=== PATIENT | female | born 1960 | race Hispanic/Latino ===

== ENCOUNTER 2019-01-06 21:18 | Emergency (ER) | payer MEDICAID ==
[~2019-01-06 21:18] MED LIST: HYDR25TA PO; LISI40TA4 PO; PRAV40TA3 PO; SULF-168 PO
[2019-01-06 21:51] LABS: BASOPHILS % (AUTO) 0.6 % (0.0-5.0); EOSINOPHILS % (AUTO) 1.2 % (0.0-8.0); HEMATOCRIT 44.3 % (36-48); LYMPHOCYTES % (AUTO) 21.7 % (21.0-51.0); MEAN CORPUSCULAR HEMOGLOBIN 29.7 pg (27.0-33.0); MEAN CORPUSCULAR HGB CONC 33.5 g/dL (32.0-36.0); MEAN CORPUSCULAR VOLUME 88.8 fL (79-99); MONOCYTES % (AUTO) 5.6 % (3.0-13.0); NEUTROPHILS % (AUTO) 70.9 % (40.0-77.0); NUCLEATED RED BLOOD CELLS 0.1 % (0.0-0.19); PLATELET COUNT (AUTO) 283 K/uL (130-400); RED BLOOD CELL COUNT(AUTO) 4.99 MIL/uL (4.00-5.50); RED CELL DISTRIBUTION WIDTH 13.1 % (11.0-15.5)
[2019-01-06 21:59] LABS: CREATININE 0.9 mg/dL (0.5-1.5); POTASSIUM 3.8 mmol/L (3.5-5.1)
[2019-01-06 22:03] LABS: ALBUMIN 4.3 g/dL (3.5-5.0); BILIRUBIN,TOTAL 0.7 mg/dL (0.2-1.0)
[2019-01-06 22:08] LABS: INR 0.93 (0.85-1.15); PARTIAL THROMBOPLASTIN TIME 25.7 SEC (26.3-35.5); PROTHROMBIN TIME 9.8 SEC (9.6-11.6)
[2019-01-06] MEDS ORDERED: ONDANSETRON HCL 4 MG/2 ML VIAL ONE (22:30)
[2019-01-06] MEDS ORDERED: MORPHINE SULFATE 4 MG/1ML SYG ONE (22:30)
[2019-01-06] MEDS ORDERED: SODIUM CHLORIDE 0.9% 1000ML 1,000 ML IV ONE (22:31)
== END 2019-01-07 01:02 | disposition home or self-care (01) ==
LOC: EDH 21:18
DX: I89.0 Lymphedema, not elsewhere classified (principal); E11.9 Type 2 diabetes mellitus without complications; M79.10 Myalgia, unspecified site; J45.909 Unspecified asthma, uncomplicated; E78.5 Hyperlipidemia, unspecified; I10 Essential (primary) hypertension
CPT/HCPCS: 36415; 80053; 82550; 84484; 85025; 85610; 85730; 93005; 93970; 96374; 96375; 99285; J2270; J2405; J7030

== ENCOUNTER 2019-07-02 20:47 | Emergency (ER) | payer MEDICAID ==
[2019-07-02] MEDS ORDERED: ONDANSETRON ODT 4 MG TAB ONE (20:57)
[2019-07-02 21:06] LABS: APPEARANCE,URINE Cloudy (CLEAR); BILIRUBIN,URINE Negative (NEGATIVE); COLOR,URINE Yellow (YELLOW); GLUCOSE, URINE (UA) Negative (NEGATIVE); KETONES,URINE Negative (NEGATIVE); LEUKOCYTE ESTERASE ,URINE Large (NEGATIVE); NITRATE,URINE Negative (NEGATIVE); OCCULT BLOOD,URINE Moderate (NEGATIVE); PROTEIN,URINE Trace mg/dL (NEGATIVE); UROBILINOGEN,URINE 0.2 mg/dL (0.2-1.0)
[2019-07-02 21:24] LABS: BACTERIA,URINE Few /HPF (None Seen); MUCUS,URINE Few LPF (None Seen); SQUAMOUS EPITHELIAL CELL,UR Few /HPF (0-2)
[2019-07-02 21:34] LABS: RAPID GROUP A STREP NEGATIVE (NEGATIVE)
[2019-07-02] MEDS ORDERED: CEPHALEXIN 500 MG CAPSULE ONE (21:37)
== END 2019-07-02 22:04 | disposition home or self-care (01) ==
LOC: EDH 20:47
DX: N39.0 Urinary tract infection, site not specified (principal); J45.909 Unspecified asthma, uncomplicated; E11.9 Type 2 diabetes mellitus without complications; E78.5 Hyperlipidemia, unspecified; I10 Essential (primary) hypertension; Z90.49 Acquired absence of other specified parts of digestive tract
CPT/HCPCS: 81001; 87804; 87880

== ENCOUNTER → 2020-12-19 | Outpatient (CLI) | payer MEDICAID ==
[~2020-12-19] MED LIST changes: -LISI40TA4 PO; +LISI40TA9 PO
== END | disposition home or self-care (01) ==
LOC: RAH 12:37
PROVIDERS: ATTEND Otolaryngology Plastic Surgery within the Head & Neck
DX: R22.1 Localized swelling, mass and lump, neck (principal)
CPT/HCPCS: 76536

== ENCOUNTER 2021-02-10 06:14 | Day surgery (SDC) | payer MEDICAID ==
[~2021-02-10] VITALS: Ht 160 cm; Wt 113.4 kg
[~2021-02-10 06:14] MED LIST changes: +BUDE10.22 IH; +PHARMACY COMMUNICATION MISC SCH; -PRAV40TA3 PO; -SULF-168 PO
[2021-02-10] MEDS ORDERED: 0.9%NACL 1000ML 1,000 ML IV ONE (06:33)
[2021-02-10 06:57] VITALS: BP 138/62
[2021-02-10] MEDS ORDERED: ATOR40TA71 PO (07:25)
[2021-02-10] MEDS ORDERED: PROPOFOL 10 MG/ML 20ML VIAL IV ONE ×2 (08:33→09:00)
[2021-02-10 09:10] VITALS: BP 110/56
[2021-02-10 09:15] VITALS: BP 128/54
[2021-02-10 09:20] VITALS: BP 112/61
[2021-02-10 09:25] VITALS: BP 124/62
== END 2021-02-10 09:45 | disposition home or self-care (01) ==
LOC: ENDO 06:14 → DAH 06:14 → ENDO 09:45
PROVIDERS: ATTEND Internal Medicine Gastroenterology
DX: R13.10 Dysphagia, unspecified (principal); Z20.822 Contact with and (suspected) exposure to COVID-19; K29.70 Gastritis, unspecified, without bleeding; R93.89 Abnormal findings on diagnostic imaging of other specified body structures; I10 Essential (primary) hypertension; J45.909 Unspecified asthma, uncomplicated; M19.90 Unspecified osteoarthritis, unspecified site; E78.5 Hyperlipidemia, unspecified; Z90.49 Acquired absence of other specified parts of digestive tract; Z79.899 Other long term (current) drug therapy
CPT/HCPCS: 43239; 43259; 87635; A4215 ×2; A4221; A4222; A4223; A4606; A4620; A4657; A4663; C9803; J3490 ×2; J7030; J2704

== ENCOUNTER → 2021-06-24 | Outpatient (CLI) | payer MEDICAID ==
[~2021-06-24] MED LIST changes: -PHARMACY COMMUNICATION MISC SCH
[2021-06-24 09:12] LABS: INR 0.95 (0.85-1.15); PROTHROMBIN TIME 10.4 SEC (9.6-11.6)
[2021-06-24 09:37] LABS: PARTIAL THROMBOPLASTIN TIME 25.7 SEC (26.3-35.5)
== END | disposition home or self-care (01) ==
LOC: RAH 07:48
PROVIDERS: ATTEND Otolaryngology Plastic Surgery within the Head & Neck
DX: E04.1 Nontoxic single thyroid nodule (principal); Z79.01 Long term (current) use of anticoagulants
CPT/HCPCS: 10005; 36415; 76942; 85610; 85730; 88173; 88305

== ENCOUNTER → 2021-09-16 | Outpatient (CLI) | payer MEDICAID | END | disposition home or self-care (01) | LOC: RAH 07:19 | PROVIDERS: ATTEND Internal Medicine Gastroenterology | DX: R10.12 Left upper quadrant pain (principal) | CPT/HCPCS: 78264; A9541 ==

== ENCOUNTER 2022-03-05 17:30 | Emergency (ER) | payer MEDICAID ==
[~2022-03-05] VITALS: Ht 160 cm; Wt 111.1 kg
[2022-03-05] MEDS ORDERED: 0.9% NACL 500ML IV.SOLN 500 ML IV ONE (18:00)
[2022-03-05] MEDS ORDERED: KETOROLAC 15MG/ML VIAL (15MG/ML) IV ONE (18:00)
[2022-03-05 18:23] VITALS: BP 153/70
[2022-03-05 18:28] LABS: BASOPHILS % (AUTO) 0.4 % (0.0-5.0); EOSINOPHILS % (AUTO) 2.3 % (0.0-8.0); HEMATOCRIT 39.7 % (36-48); LYMPHOCYTES % (AUTO) 25.1 % (21.0-51.0); MEAN CORPUSCULAR HEMOGLOBIN 29.6 pg (27.0-33.0); MEAN CORPUSCULAR VOLUME 89.8 fL (79-99); MONOCYTES % (AUTO) 6.5 % (3.0-13.0); NEUTROPHILS % (AUTO) 65.3 % (40.0-77.0); PLATELET COUNT (AUTO) 261 K/uL (130-400); RED BLOOD CELL COUNT(AUTO) 4.42 MIL/uL (4.00-5.50); RED CELL DISTRIBUTION WIDTH 13.2 % (11.0-15.5); WHITE BLOOD COUNT (AUTO) 11.4 K/uL (4.8-10.8)
[2022-03-05 18:30] LABS: APPEARANCE,URINE CLEAR (CLEAR); BILIRUBIN,URINE NEGATIVE (NEGATIVE); COLOR,URINE YELLOW (YELLOW); GLUCOSE, URINE (UA) NEGATIVE (NEGATIVE); KETONES,URINE NEGATIVE (NEGATIVE); LEUKOCYTE ESTERASE ,URINE NEGATIVE (NEGATIVE); NITRATE,URINE NEGATIVE (NEGATIVE); OCCULT BLOOD,URINE NEGATIVE (NEGATIVE); PROTEIN,URINE NEGATIVE (NEGATIVE); UROBILINOGEN,URINE 0.2 mg/dL (0.2-1.0)
[2022-03-05 18:40] LABS: CREATININE 0.9 mg/dL (0.5-1.5); POTASSIUM 3.4 mmol/L (3.5-5.1)
[2022-03-05 18:45] LABS: ALBUMIN 3.5 g/dL (3.5-5.0); TOTAL PROTEIN, SERUM 7.3 g/dL (6.0-8.3); URIC ACID 5.9 mg/dL (2.6-7.2)
[2022-03-05] MEDS ORDERED: METR-172 PO (19:43)
[2022-03-05] MEDS ORDERED: ACET-66 PO (19:43)
[2022-03-05] MEDS ORDERED: CIPR-278 PO (19:43)
== END 2022-03-05 19:56 | disposition home or self-care (01) ==
LOC: EDH 17:30
DX: K57.32 Diverticulitis of large intestine without perforation or abscess without bleeding (principal); M25.561 Pain in right knee; M25.551 Pain in right hip; E78.00 Pure hypercholesterolemia, unspecified; I10 Essential (primary) hypertension; J45.909 Unspecified asthma, uncomplicated; Z79.51 Long term (current) use of inhaled steroids; Z90.49 Acquired absence of other specified parts of digestive tract; W18.39XA Other fall on same level, initial encounter; Y93.89 Activity, other specified; Y92.89 Other specified places as the place of occurrence of the external cause; Y99.8 Other external cause status
CPT/HCPCS: 99285; 74176; 96374; 96361; 84550; 80053; 85025; 81003; 36415; 73564; J7040; J1885

== ENCOUNTER 2022-10-05 05:39 | Observation (INO) | payer MEDICAID ==
[2022-09-30 15:19] LABS: BASOPHILS % (AUTO) 0.3 % (0.0-5.0); EOSINOPHILS % (AUTO) 2.1 % (0.0-8.0); HEMATOCRIT 44.3 % (36-48); LYMPHOCYTES % (AUTO) 25.3 % (21.0-51.0); MEAN CORPUSCULAR HEMOGLOBIN 29.5 pg (27.0-33.0); MEAN CORPUSCULAR HGB CONC 32.1 g/dL (32.0-36.0); MEAN CORPUSCULAR VOLUME 91.9 fL (79-99); MONOCYTES % (AUTO) 5.2 % (3.0-13.0); NEUTROPHILS % (AUTO) 66.8 % (40.0-77.0); PLATELET COUNT (AUTO) 258 K/uL (130-400); RED BLOOD CELL COUNT(AUTO) 4.82 MIL/uL (4.00-5.50); RED CELL DISTRIBUTION WIDTH 13.2 % (11.0-15.5); WHITE BLOOD COUNT (AUTO) 9.2 K/uL (4.8-10.8)
[2022-09-30 15:26] LABS: APPEARANCE,URINE CLEAR (CLEAR); BILIRUBIN,URINE NEGATIVE (NEGATIVE); COLOR,URINE LIGHT-YELLOW (YELLOW); GLUCOSE, URINE (UA) NEGATIVE (NEGATIVE); KETONES,URINE NEGATIVE (NEGATIVE); LEUKOCYTE ESTERASE ,URINE NEGATIVE Leu/uL (NEGATIVE); NITRATE,URINE NEGATIVE (NEGATIVE); OCCULT BLOOD,URINE NEGATIVE (NEGATIVE); PROTEIN,URINE NEGATIVE (NEGATIVE); UROBILINOGEN,URINE 0.2 mg/dL (0.2-1.0)
[2022-09-30 15:35] LABS: INR 0.93 (0.85-1.15)
[2022-09-30 15:36] VITALS: BP 188/66
[2022-09-30 15:37] LABS: PARTIAL THROMBOPLASTIN TIME 26.1 SEC (26.3-35.5)
[2022-10-05] VITALS (27 sets, daily range): BP systolic 104–132; BP diastolic 48–72
[~2022-10-05] VITALS: Ht 160 cm; Wt 109.7 kg
[~2022-10-05 05:39] MED LIST changes: -BUDE10.22 IH; +METF-444 PO; +PROVENTIL IH; +VITAMIN D PO
[2022-10-05] MEDS ORDERED: CEFAZOLIN SODIUM 2 GM VIAL ONE (06:21)
[2022-10-05] MEDS ORDERED: 0.9%NACL 1000ML 1,000 ML IV ONE (06:21)
[2022-10-05] MEDS ORDERED: CEFAZOLIN SODIUM 1 GM VIAL ONE (06:21)
[2022-10-05 06:56] LABS: CREATININE 0.7 mg/dL (0.5-1.5); POTASSIUM 4.6 mmol/L (3.5-5.1)
[2022-10-05] MEDS ORDERED: DEXAMETHASONE SOD PHOSPHATE 10MG/ML 1ML VIAL ONE (07:48)
[2022-10-05] MEDS ORDERED: LIDOCAINE PF 100MG/5ML (2%) SYRINGE 5ML ONE (07:48)
[2022-10-05] MEDS ORDERED: SUCCINYLCHOLINE 200MG/10ML SYR ONE (07:48)
[2022-10-05] MEDS ORDERED: PHENYLEPHRINE HCL 10 MG/ML 1ML VIAL IV ONE (07:49)
[2022-10-05] MEDS ORDERED: FENTANYL CITRATE PF 50 MCG/1 ML 5ML AMP IV ONE (07:49)
[2022-10-05] MEDS ORDERED: MIDAZOLAM HCL 1 MG/ML 2ML VIAL ONE (07:49)
[2022-10-05] MEDS ORDERED: EPHEDRINE SULFATE 50 MG/ML AMPULE ONE (07:49)
[2022-10-05] MEDS ORDERED: ROCURONIUM 10MG/1ML SYR 10 MG/ML ML ONE (07:49)
[2022-10-05] MEDS ORDERED: ONDANSETRON 4MG INJ ONE (07:49)
[2022-10-05] MEDS ORDERED: PROPOFOL 10 MG/ML 20ML VIAL IV ONE (07:49)
[2022-10-05] MEDS ORDERED: ALBUTEROL INHALER 90MCG/INH IH ONE (07:52)
[2022-10-05] MEDS ORDERED: CEFAZOLIN SODIUM 3 GM VIAL IV ONE (08:00)
[2022-10-05] MEDS ORDERED: NEOSTIGMINE 5MG/5ML SYR IV ONE (09:10)
[2022-10-05] MEDS ORDERED: GLYCOPYRROLATE 1 MG/5 ML SYRINGE ONE (09:10)
[2022-10-05] MEDS ORDERED: MORPHINE 2 MG SYG ONE (10:08)
[2022-10-05] MEDS ORDERED: FENTANYL CITRATE PF 50 MCG/1 ML 2ML VIAL ONE (10:32)
[2022-10-05] MEDS ORDERED: BISACODYL 10 MG SUPP.RECT RC PRN (12:30)
[2022-10-05] MEDS ORDERED: ACETAMINOPHEN WITH CODEINE 1 TAB TAB PO PRN (12:30)
[2022-10-05] MEDS ORDERED: DOCUSATE SODIUM 100 MG CAP PO PRN (12:30)
[2022-10-05] MEDS ORDERED: PROMETHAZINE HCL 25 MG/ML 1ML AMPULE IM PRN (12:30)
[2022-10-05] MEDS ORDERED: SIMETHICONE 80 MG TAB.CHEW PO PRN (12:30)
[2022-10-05] MEDS ORDERED: IBUPROFEN 600 MG TABLET PO PRN (12:30)
[2022-10-05] MEDS: PROMETHAZINE HCL 25 MG/ML 1ML AMPULE IM PRN ×2 (13:09→16:21)
[2022-10-05] MEDS: MEPERIDINE-PF 75 MG/ML SYG IM PRN ×2 (13:10→16:22)
[2022-10-05] MEDS: LACTATED RINGERS 1000ML 1,000 ML IV SCH ×2 (14:13→23:35)
[2022-10-05] MEDS: INSULIN HUMULIN R 100 UNIT/ML 3ML SQ SCH ×2 (16:30→21:00)
[2022-10-06 03:40] VITALS: BP 121/57
[2022-10-06 06:29] LABS: HEMATOCRIT 40.1 % (36-48); MEAN CORPUSCULAR HEMOGLOBIN 29.8 pg (27.0-33.0); MEAN CORPUSCULAR HGB CONC 31.9 g/dL (32.0-36.0); MEAN CORPUSCULAR VOLUME 93.5 fL (79-99); RED BLOOD CELL COUNT(AUTO) 4.29 MIL/uL (4.00-5.50); RED CELL DISTRIBUTION WIDTH 13.3 % (11.0-15.5); WHITE BLOOD COUNT (AUTO) 11.7 K/uL (4.8-10.8)
[2022-10-06] MEDS: INSULIN HUMULIN R 100 UNIT/ML 3ML SQ SCH (07:30)
[2022-10-06 07:42] VITALS: BP 119/56
[2022-10-06] MEDS ORDERED: ACET-2079 PO (10:51)
== END 2022-10-06 12:15 | disposition home or self-care (01) ==
LOC: DAH 05:39 → WSH 05:40 → DAH 05:40
PROVIDERS: ADMIT Obstetrics & Gynecology; ATTEND Obstetrics & Gynecology
DX: N95.0 Postmenopausal bleeding (principal); Z20.822 Contact with and (suspected) exposure to COVID-19; K46.9 Unspecified abdominal hernia without obstruction or gangrene; D25.9 Leiomyoma of uterus, unspecified; J45.909 Unspecified asthma, uncomplicated; I10 Essential (primary) hypertension; E66.01 Morbid (severe) obesity due to excess calories; E11.9 Type 2 diabetes mellitus without complications; Z79.899 Other long term (current) drug therapy
CPT/HCPCS: 85025; 85610; 85730; 86850 ×2; 86900 ×2; 86901 ×2; 87426; 81003; 36415 ×3; 58263; 96372; 80048; 82948 ×5; 88307; 85027; A6260; G0378 ×26; A4663; J7120; A4351; A4606; J0690 ×3; J3010 ×2; J0330; J3490 ×4; J1100; J2710; J7030; J2550 ×2; J2250; J2405; J2175 ×2; J2370; A4930; A4215; A4223; A4222; A4221; A4600; A4510; J2001; J2704

== ENCOUNTER → 2023-03-21 | Outpatient (CLI) | payer MEDICAID ==
[~2023-03-21] MED LIST changes: +ACET-2079 PO
== END | disposition home or self-care (01) ==
LOC: RAH 07:43
PROVIDERS: ATTEND Internal Medicine Gastroenterology
DX: R10.84 Generalized abdominal pain (principal); R11.0 Nausea
CPT/HCPCS: 78264; A9541

== ENCOUNTER 2024-01-13 12:21 | Emergency (ER) | payer MEDICAID ==
[~2024-01-13] VITALS: Ht 160 cm; Wt 113.4 kg
[2024-01-13 13:44] LABS: BASOPHILS # (AUTO) 0.05 K/uL (0.00-0.20); BASOPHILS % (AUTO) 0.5 % (0.0-5.0); EOSINOPHILS # (AUTO) 0.17 K/uL (0.00-0.70); EOSINOPHILS % (AUTO) 1.7 % (0.0-8.0); HEMATOCRIT 40.5 % (36-48); IMMATURE GRANULOCYTE ABSOLUTE 0.04 K/uL (0-1); LYMPHOCYTES # (AUTO) 1.5 K/uL (1.0-4.8); LYMPHOCYTES % (AUTO) 15.2 % (21.0-51.0); MEAN CORPUSCULAR HEMOGLOBIN 29.1 pg (27.0-33.0); MEAN CORPUSCULAR HGB CONC 33.8 g/dL (32.0-36.0); MEAN CORPUSCULAR VOLUME 86.2 fL (79-99); MONOCYTES # (AUTO) 0.6 K/uL (0.1-1.0); MONOCYTES % (AUTO) 6.1 % (3.0-13.0); NEUTROPHILS # (AUTO) 7.7 K/uL (1.8-7.7); NEUTROPHILS % (AUTO) 76.1 % (40.0-77.0); PLATELET COUNT (AUTO) 262 K/uL (130-400); RED CELL DISTRIBUTION WIDTH 13.1 % (11.0-15.5); WHITE BLOOD COUNT (AUTO) 10.2 K/uL (4.8-10.8)
[2024-01-13 14:01] VITALS: PULSE 80; RESP 18
[2024-01-13] MEDS: IPRATROPIUM/ALBUTEROL SULFATE 3 ML SOLUTION IH ONE (14:01)
[2024-01-13 14:11] LABS: CREATININE 0.8 mg/dL (0.5-1.0); POTASSIUM 3.6 mmol/L (3.5-5.1)
[2024-01-13 14:32] LABS: SARS-CoV-2, RNA, NAAT NEGATIVE SARS CoV-2 (NEGATIVE)
[2024-01-13 14:35] LABS: INFLUENZA TYPE A Negative For Type A (NEGATIVE); INFLUENZA TYPE B Negative For Type B (NEGATIVE)
[2024-01-13 15:45] LABS: APPEARANCE,URINE CLOUDY (CLEAR); BILIRUBIN,URINE NEGATIVE (NEGATIVE); COLOR,URINE YELLOW (YELLOW); GLUCOSE, URINE (UA) NEGATIVE (NEGATIVE); KETONES,URINE NEGATIVE (NEGATIVE); LEUKOCYTE ESTERASE ,URINE 500 Leu/uL (NEGATIVE); NITRATE,URINE NEGATIVE (NEGATIVE); PH,URINE 5.5 (5.0-8.0); PROTEIN,URINE 20 mg/dL (NEGATIVE)
[2024-01-13 15:57] LABS: ADD UA MICROSCOPIC YES
[2024-01-13 16:00] LABS: BACTERIA,URINE RARE /HPF (None Seen); MUCUS,URINE FEW LPF (None Seen); SQUAMOUS EPITHELIAL CELL,UR FEW /HPF (0-2)
[2024-01-13] MEDS ORDERED: CEPH500B PO (16:27)
[2024-01-13 16:35] VITALS: BP 168/69; PULSE 80; RESP 18; O2SAT 97
== END 2024-01-13 16:36 | disposition home or self-care (01) ==
LOC: EDH 12:21
DX: R07.89 Other chest pain (principal); J06.9 Acute upper respiratory infection, unspecified; N39.0 Urinary tract infection, site not specified; E11.9 Type 2 diabetes mellitus without complications; E78.00 Pure hypercholesterolemia, unspecified; I10 Essential (primary) hypertension; J45.909 Unspecified asthma, uncomplicated; M79.7 Fibromyalgia; Z90.49 Acquired absence of other specified parts of digestive tract; Z20.822 Contact with and (suspected) exposure to COVID-19
CPT/HCPCS: 36415; 71045; 80048; 81001; 84484; 85025; 87086; 87635; 87804; 93005; 94640

== ENCOUNTER 2024-12-21 20:20 | Emergency (ER) | payer SELFPAY ==
[~2024-12-21] VITALS: Ht 160 cm; Wt 95.3 kg
[~2024-12-21 20:20] MED LIST changes: +CEPH500B PO; +LISI40TA15 PO; -LISI40TA9 PO
--- NOTE | 2024-12-21 20:21 | NUR ---
UA CUP PROVIDED
--- NOTE | 2024-12-21 20:31 | ERN ---
ED Note History of Present Illness Stated Complaint: CHEST PAIN , SOB Chief Complaint: Chest Pain Time Seen by MD: 20:29 Time Seen by Midlevel: 20:45 Dictation: Ms. Lambert is a 64-year-old female with history of obesity, fibromyalgia, asthma, hypertension, type 2 diabetes, and hyperlipidemia who presented to the emergency department this evening for evaluation of chest pain. She states for the past 24 hours she has been experiencing substernal chest pain/pressure (rates 8/10) which radiates to her upper back. She states that the pain occurs at rest and is accompanied by anxiety, shortness of breath, and headache. She states that she also has a itchy/scratchy throat and a productive cough with yellow sputum. She also has stated that she feels like she is off-balance when she is walking. She states I feel like I am drunk. She states the pain worsened last night. She is anxious at this time and states that she is concerned the symptoms are related to increased anxiety and stress. She states her mom in July, her partner two months ago and her best friend just on Tuesday. Allergies: Coded Allergies: No Known Drug Allergies (Unverified Allergy, Unknown, 01/07/19) Home Meds Active Scripts Cephalexin Monohydrate (Keflex) 500 Mg Cap, 500 MG PO BID for 7 Days, #14 CAP Prov:LAVONNE SOLANO MD 01/13/24 Reported Medications Acetaminophen with Codeine (Acetaminophen-Cod #3 Tablet) 1 Each Tablet, 1 EACH PO Q6HPRN, TAB 10/06/22 [Proventil] No Conflict Check, 2 PUFF IH BID 09/30/22 [Vitamin D] No Conflict Check, 37898 UNITS PO WEEKLY 09/30/22 Metformin HCl (Metformin HCl) 500 Mg Tablet, 500 MG PO AM, TAB 09/30/22 Lisinopril (Lisinopril) 40 Mg Tablet, 60 MG PO HS, TAB 09/30/22 Lisinopril (Lisinopril) 40 Mg Tablet, 40 MG PO AM, TAB 07/23/14 Hydrochlorothiazide (Hydrochlorothiazide) 25 Mg Tablet, 25 MG PO AM, TAB 07/23/14 Past Medical History Past Medical History: Asthma, Diabetes-Type I, Fibromyalgia, High Cholesterol, Hypertension Additional Past Medical Hx: GOUT Surgical History: Hysterectomy, Cholecystectomy, Other Surgical History Other: BILATERAL KNE History: Not Applicable RN Note Reviewed/Agreed w/PFSH: Yes Review of System Dictation REVIEW OF SYSTEMS: CONSTITUTIONAL: Patient denies fevers, chills, sweats and weight changes. Reports fatigue and general weakness. EYES: Patient denies any visual symptoms. EARS, NOSE, AND THROAT: No difficulties with hearing. No symptoms of rhinitis. Reports scratchy throat. CARDIOVASCULAR: Patient denies palpitations, orthopnea and paroxysmal nocturnal dyspnea. Reports substernal chest pain/pressure radiating to upper back. RESPIRATORY: No dyspnea on exertion, no wheezing.. Reports cough with yellow sputum. Reports shortness of breath GI: No nausea, vomiting, diarrhea, constipation, abdominal pain, hematochezia or melena. : No urinary hesitancy or dribbling. No nocturia or urinary frequency. No abnormal urethral discharge. MUSCULOSKELETAL: No myalgias or arthralgias. NEUROLOGIC: No seizures. Patient denies numbness, tingling or weakness. She denies difficulty speaking, swallowing or having focal weakness/paresthesia. Reports headache. She states that she has felt like she is off balance and almost fell. She states it feels like she is drunk. PSYCHIATRIC: Patient denies problems with mood disturbance Reports increased anxiety and stress following the deaths of her Mother, partner, and her best friend. ENDOCRINE: No excessive urination or excessive thirst. DERMATOLOGIC: Patient denies any rashes or skin changes. Initial Vital Sign VS Vital Signs Date Time Temp Pulse Resp B/P (MAP) Pulse Ox O2 Delivery O2 Flow Rate FiO2 12/21/24 20:21 97.5 71 18 167/91 98 Room Air Physical Exam Dictation Vital signs: Reviewed. Afebrile. Constitutional: Slightly anxious. Family at bedside. Head/Face: Normocephalic, atraumatic. Eyes: Periorbital areas with no swelling, redness, or edema. Lids and lashes are normal. Conjunctival injection is absent. Sclera anicteric. Pupils equal, round, reactive to light. ENT: Pinnas intact and no signs of trauma or erythema. Ear canals clear and no discharge. TMs no erythema. No nasal discharge or bleeding noted. Oropharynx with no exudate, redness, swelling, masses, exudates, or evidence of obstruction. Uvula midline. Mucous membranes moist. Neck: Trachea midline, no masses palpated, and no cervical lymphadenopathy. No swelling. Supple, full range of motion. Chest/Axilla: No tenderness, no crepitus, no paradoxical movement, no retractions. Cardiovascular: Regular rate, regular rhythm, no murmur, no gallops. Symmetric pulses. No peripheral edema. Reports chest pain radiating to back rated 8/10. Respiratory: Respirations even and unlabored. Lung sounds clear; no wheezes, rales or rhonchi. Room air SpO2 98%. Gastrointestinal: Inspection is normal. No distention is appreciated. Bowel sounds are normal. No mass or organomegaly . There is no tenderness. No rebound. No rigidity. No voluntary or involuntary guarding. No Cunningham's sign. Neurological: Normal speech, gross motor function intact, gross sensory function intact. No focal weakness/Paresthesia. Musculoskeletal/Extremities: All extremities have full range of motion, no pain or tenderness on palpation. Symmetric pulses. Integumentary: Intact. Skin is normal color, warm and dry. Cap refill less than 2 seconds. Results (Laboratory/Radiology) Laboratory/Radiology Laboratory Tests Test 12/21/24 20:50 12/21/24 20:53 12/21/24 22:05 White Blood Count 9.3 K/uL (4.8-10.8) Red Blood Count 4.69 MIL/uL (4.00-5.50) Hemoglobin 14.2 g/dL (12.0-16.0) Hematocrit 42.2 % (36-48) Mean Corpuscular Volume 90.0 fL (79-99) Mean Corpuscular Hemoglobin 30.3 pg (27.0-33.0) Mean Corpuscular Hemoglobin Concent 33.6 g/dL (32.0-36.0) Red Cell Distribution Width 13.1 % (11.0-15.5) Platelet Count 320 K/uL (130-400) Mean Platelet Volume 9.8 fL (7.5-10.5) Immature Granulocyte % (Auto) 0.4 % (0-1) Neutrophils (%) (Auto) 53.2 % (40.0-77.0) Lymphocytes (%) (Auto) 34.6 % (21.0-51.0) Monocytes (%) (Auto) 6.8 % (3.0-13.0) Eosinophils (%) (Auto) 4.5 % (0.0-8.0) Basophils (%) (Auto) 0.5 % (0.0-5.0) Neutrophils # (Auto) 4.9 K/uL (1.8-7.7) Lymphocytes # (Auto) 3.2 K/uL (1.0-4.8) Monocytes # (Auto) 0.6 K/uL (0.1-1.0) Eosinophils # (Auto) 0.42 K/uL (0.00-0.70) Basophils # (Auto) 0.05 K/uL (0.00-0.20) Absolute Immature Granulocyte (auto 0.04 K/uL (0-1) Nucleated Red Blood Cells 0.0 % (0.0-0.19) Sodium Level 143 mmol/L (136-145) Potassium Level 4.7 mmol/L (3.5-5.1) Chloride Level 105 mmol/L (101-111) Carbon Dioxide Level 31 mmol/L (21-32) Blood Urea Nitrogen 14 mg/dL (7-18) Creatinine 0.7 mg/dL (0.5-1.0) Glomerular Filtration Rate Calc 97 mL/min (>90) Random Glucose 117 mg/dL (70-105) H Total Calcium 9.6 mg/dL (8.5-10.1) Total Creatine Kinase 79 U/L (21-232) Troponin I High Sensitivity 8 ng/L (4-50) B-Type Natriuretic Peptide 9 pg/mL (0-100) Urine Color LIGHT-YELLOW (YELLOW) Urine Appearance CLEAR (CLEAR) Urine pH 6.5 (5.0-8.0) Urine Specific [place] 1.020 (1.001-1.031) Urine Protein NEGATIVE mg/dL (NEGATIVE) Urine Glucose (UA) NEGATIVE mg/dL (NEGATIVE) Urine Ketones NEGATIVE mg/dL (NEGATIVE) Urine Occult Blood NEGATIVE (NEGATIVE) Urine Nitrate NEGATIVE (NEGATIVE) Urine Bilirubin NEGATIVE mg/dL (NEGATIVE) Urine Urobilinogen 0.2 mg/dL (0.2-1.0) Urine Leukocyte Esterase NEGATIVE Jo [place]/uL Influenza Type A Antigen Negative For Type A Influenza Type B Antigen Negative For Type B SARS-CoV-2, RNA, NAAT NEGATIVE SARS CoV-2 Group A Streptococcus Rapid negative (NEGATIVE) Labs Reviewed?: Yes EKG Comment: EKG Interpretation: Time Reviewed:2015 Ventricular rate: 64 bpm WI Interval: 166 ms QRS duration: [address] segment elevation or depression. Clinical impression: Sinus rhythm EKG Reviewed and interpreted by Dr. Soren Benitez X-RAY Comment: PATIENT: SHAKIR LAMBERT MR#: [id number] : 1960 SEX: F AGE: 64 LOCATION: [facility] ORDER 21 STATUS: REG ER REPORT#: [id number] SERVICE 21 REASON: CHEST PAIN ORDERING PHYSICIAN: ESE BENITEZ MD PROCEDURE: CXR1VW - CHEST 1VW CHEST 1VW HISTORY: Chest pain COMPARISON: January 13, 2024 FINDINGS: A frontal projection of the chest was obtained. No acute pulmonary infiltrates is seen. The heart is normal in size. Prominent interstitial markings are seen. No evidence of aortic calcification is seen. IMPRESSION: 1. No acute pulmonary infiltrate is seen. DICTATED BY: MANISH DIAL MD DATE: 12/21/242132 ELECTRONICALLY SIGNED BY: MANISH DIAL MD DATE: 12/21/242137 CT Scan Comment: PATIENT: SHAKIR LAMBERT MR#: [id number] : 1960 SEX: F AGE: 64 LOCATION: [facility] ORDER 39 STATUS: REG ER REPORT#: [id number] SERVICE 38 REASON: dizziness, unsteady gait ORDERING PHYSICIAN: TAHMINA GALLEGOS NP PROCEDURE: HEAD WO - CT HEAD/BRAIN W/O CONTRAST CT HEAD/BRAIN W/O CONTRAST HISTORY: Dizziness and unsteady gait COMPARISON: None TECHNIQUE: Multiple sequential axial images of the head were obtained from the base of the skull through vertex. Patient was not given contrast through intravenous route. FINDINGS: The ventricles and extraventricular CSF spaces are dilated consistent with cerebral atrophy. Nonspecific white matter changes seen. There is no midline shift, mass effect or herniation. No acute intracranial bleed is seen. Visualized portion of the paranasal sinuses are grossly within normal limits. IMPRESSION: 1. No acute intracranial bleed is seen. 2. Atrophy with white matter changes. CT was performed with one or more following dose reduction techniques: automated exposure control, adjustment of the mA and kv according to patient's size, or use of a iterative reconstruction technique. DICTATED BY: MANISH DIAL MD DATE: 12/21/242207 ELECTRONICALLY SIGNED BY: MANISH DIAL MD DATE: 12/21/242210 ED Course ED Course Orders Procedure Category Date Status Time Vital Signs Per CPOE 12/21/24 Transmitted Routine 20:22 B-Type Natriuretic LAB 12/21/24 Complete Peptide 20:22 Chest 1vw RAD 12/21/24 Resulted 20:22 12 Lead Ekg Tracing- EKG 12/21/24 Logged Technical 20:22 Oxygen By Nc/Pulse Ox CPOE 12/21/24 Transmitted 20:22 Maintain Iv CPOE 12/21/24 Transmitted 20:22 Iv Insertion CPOE 12/21/24 Transmitted 20:22 Cardiac Monitoring CPOE 12/21/24 Transmitted 20:22 Pulse Oximetry With CPOE 12/21/24 Transmitted Vs And Prn 20:22 Cbc With Differential LAB 12/21/24 Complete 20:22 Activity: Br W/Brp CPOE 12/21/24 Transmitted With Assist 20:22 Creatine Kinase, Total LAB 12/21/24 Complete 20:22 Troponin I High LAB 12/21/24 Complete Sensitivity 20:22 Urinalysis Profile LAB 12/21/24 Complete 20:22 Basic Metabolic Panel LAB 12/21/24 Complete 20:22 Aspirin 81mg Chew Tab PHA 12/21/24 Complete (Aspirin 81mg Chew 21:30 Nitroglycerin 0.4mg PHA 12/21/24 In Process Sl Tab (Nitrostat) 21:30 Influenza Type A & B, LAB 12/21/24 Complete Rapid 21:22 Covid Rna Naat LAB 12/21/24 Complete 21:22 Rapid (Group A Strep) LAB 12/21/24 Complete 21:22 Ct Head/Brain W/O CT 12/21/24 Resulted Contrast 21:39 Troponin I High LAB 12/21/24 In Process Sensitivity 22:20 Lorazepam 0.5 Mg PHA 12/21/24 Complete (Ativan) 22:30 Current Medications Medications (Trade) Dose Ordered Sig/Mirella Route PRN Reason Start Time Stop Time Status Last Admin Dose Admin Aspirin (Aspirin 81mg Chew Tab) 324 mg ONCE ONCE PO 12/21/24 21:30 12/21/24 21:31 DC 12/21/24 21:58 Lorazepam (AtiVAN) 0.5 mg ONCE ONCE PO 12/21/24 22:30 12/21/24 22:31 DC 12/21/24 22:48 Nitroglycerin (Nitrostat) 0.4 mg AD PRN SL CHEST PAIN 12/21/24 21:30 01/20/25 21:29 12/21/24 22:04 Vital Signs Date Time Temp Pulse Resp B/P (MAP) Pulse Ox O2 Delivery O2 Flow Rate FiO2 12/21/24 20:21 97.5 71 18 167/91 98 Room Air Uneventful ED course. Vital signs are stable. Twelve lead EKG reflects a sinus rhythm without ST elevation or depression. Patient states she feels anxious with chest pain which she felt may be related to increased stress due to the loss of loved ones recently. She received doses nitro x1, aspirin, and Ativan. Laboratory findings as noted below. COVID and influenza A/B negative. No elevation of WBCs. H&H are stable. Glucose 117. Troponin x2 negative. BNP is not elevated. Chest x-ray is unremarkable. She states she is now feeling much better. She will be discharged to home with her daughter. HEART Score Response (Comments) Value History: Moderate suspicion (+1) 1 EKG: Normal 0 Age: 45-65yrs (+1) 1 Risk Factors: 1-2 risk factors (+1) 1 Initial Troponin: Normal limit (0) 0 HEART Score Risk: Low Risk for MACE (1-3) Total 3 Medical Decision Making MDM MDM: Differential diagnosis: ACS, arrhythmia, anxiety reaction, influenza, COVID Rationale: Tests considered and ordered secondary to shared decision making include: EKG, LAB, CT. Xray Previous outside records reviewed: Old ER visits. Risk of complication and/or morbidity or mortality of patient management: None Medications-Per medication reconciliation Need for hospitalization: Patient does not meet criteria for hospitalization. Need for emergency major/minor surgery: No There are no social concerns with this patient. Prescription drug management: Hydroxyzine Prescriptions will include symptomatic care Patient's prior external medical records from other ER visits were reviewed by me as indicated. Prior testing and results from previous visits were reviewed. Prior tests were taken into account with medical decision making and resource utilization, independent historian/historians were used to obtain complete medical history. I independently interpreted the test that were performed, results were reviewed by me and considered findings on radiology if ordered. Medical management and examination interpretation discussions were had by me with other qualified healthcare professionals as indicated for the patient's care. . DX & DISP Disposition: Discharge Departure Impression: Primary Impression: Chest pain Additional Impressions: Anxiety reaction, Stress Condition: Stable Scripts Hydroxyzine HCl (Hydroxyzine HCl) 25 Mg Tablet 1 TAB PO BID, #10 TAB 0 Refills Prov: TAHMINA GALLEGOS [employer]IMMING [employer] SERVICER 12/21/24 Additional Instructions: You were evaluated for chest pain. Based on your symptoms, exam, EKG, and blood work (including cardiac enzymes), and overall risk factors your risk for cardiac event is low at this time. Your heart score is a three which means you have a short-term risk of heart problems is less than 2%. We believe your symptoms may be related to stress, anxiety or grief which can mimic or worsened chest pain. At home you should rest and drink plenty of fluids. Avoid stimulants (example caffeine and nicotine). [id number] pain medications like Tylenol and ibuprofen may be used as needed for discomfort. Hydroxyzine as needed for anxiety. Practice stress management: Breathing exercises, walking, drooling, or meditation. Talked to a grief counselor, therapist, or primary care provider for additional support return to the emergency department if you develop: New or worsening chest pain (especially with exertion), pain that radiates to jaw/arms/or back, shortness of breath, sweating, dizziness, nausea, palpitations, or passing out. Follow up with your primary care provider in the next 3-5 days. Referrals: CHIDI CHAVEZ (PCP) Time of Disposition: 23:38 TAHMINA GALLEGOS [employer] SERVICER Dec 21, 2024 20:31
[2024-12-21 21:01] LABS: BASOPHILS # (AUTO) 0.05 K/uL (0.00-0.20); BASOPHILS % (AUTO) 0.5 % (0.0-5.0); EOSINOPHILS # (AUTO) 0.42 K/uL (0.00-0.70); EOSINOPHILS % (AUTO) 4.5 % (0.0-8.0); HEMATOCRIT 42.2 % (36-48); IMMATURE GRANULOCYTE ABSOLUTE 0.04 K/uL (0-1); LYMPHOCYTES # (AUTO) 3.2 K/uL (1.0-4.8); LYMPHOCYTES % (AUTO) 34.6 % (21.0-51.0); MEAN CORPUSCULAR HEMOGLOBIN 30.3 pg (27.0-33.0); MEAN CORPUSCULAR HGB CONC 33.6 g/dL (32.0-36.0); MONOCYTES # (AUTO) 0.6 K/uL (0.1-1.0); MONOCYTES % (AUTO) 6.8 % (3.0-13.0); NEUTROPHILS # (AUTO) 4.9 K/uL (1.8-7.7); NEUTROPHILS % (AUTO) 53.2 % (40.0-77.0); PLATELET COUNT (AUTO) 320 K/uL (130-400); RED BLOOD CELL COUNT(AUTO) 4.69 MIL/uL (4.00-5.50); RED CELL DISTRIBUTION WIDTH 13.1 % (11.0-15.5); WHITE BLOOD COUNT (AUTO) 9.3 K/uL (4.8-10.8)
[2024-12-21 21:03] LABS: APPEARANCE,URINE CLEAR (CLEAR); BILIRUBIN,URINE NEGATIVE (NEGATIVE); COLOR,URINE LIGHT-YELLOW (YELLOW); GLUCOSE, URINE (UA) NEGATIVE (NEGATIVE); KETONES,URINE NEGATIVE (NEGATIVE); LEUKOCYTE ESTERASE ,URINE NEGATIVE Leu/uL (NEGATIVE); NITRATE,URINE NEGATIVE (NEGATIVE); PH,URINE 6.5 (5.0-8.0); PROTEIN,URINE NEGATIVE (NEGATIVE); UROBILINOGEN,URINE 0.2 mg/dL (0.2-1.0)
[2024-12-21 21:08] LABS: CREATININE 0.7 mg/dL (0.5-1.0); POTASSIUM 4.7 mmol/L (3.5-5.1)
[2024-12-21 21:08] LABS: ADD UA MICROSCOPIC NO; OCCULT BLOOD,URINE NEGATIVE (NEGATIVE)
[2024-12-21 21:24] LABS: B-TYPE NATRIURETIC PEPTIDE 9 pg/mL (0-100)
--- NOTE | 2024-12-21 21:38 | HMCIMG ---
CHEST 1VW HISTORY: Chest pain COMPARISON: January 13, 2024 FINDINGS: A frontal projection of the chest was obtained. No acute pulmonary infiltrates is seen. The heart is normal in size. Prominent interstitial markings are seen. No evidence of aortic calcification is seen. IMPRESSION: 1. No acute pulmonary infiltrate is seen.
[2024-12-21] MEDS: ASPIRIN 81MG CHEW TAB PO ONE (21:58)
[2024-12-21] MEDS: NITROGLYCERIN 0.4 MG SL TAB SL PRN (22:04)
--- NOTE | 2024-12-21 22:11 | HMCIMG ---
CT HEAD/BRAIN W/O CONTRAST HISTORY: Dizziness and unsteady gait COMPARISON: None TECHNIQUE: Multiple sequential axial images of the head were obtained from the base of the skull through vertex. Patient was not given contrast through intravenous route. FINDINGS: The ventricles and extraventricular CSF spaces are dilated consistent with cerebral atrophy. Nonspecific white matter changes seen. There is no midline shift, mass effect or herniation. No acute intracranial bleed is seen. Visualized portion of the paranasal sinuses are grossly within normal limits. IMPRESSION: 1. No acute intracranial bleed is seen. 2. Atrophy with white matter changes. CT was performed with one or more following dose reduction techniques: automated exposure control, adjustment of the mA and kv according to patient's size, or use of a iterative reconstruction technique.
[2024-12-21 22:23] LABS: RAPID GROUP A STREP negative (NEGATIVE)
[2024-12-21 22:31] LABS: SARS-CoV-2, RNA, NAAT NEGATIVE SARS CoV-2 (NEGATIVE)
[2024-12-21 22:33] LABS: INFLUENZA TYPE A Negative For Type A (NEGATIVE); INFLUENZA TYPE B Negative For Type B (NEGATIVE)
[2024-12-21] MEDS: LORazepam 0.5 MG TABLET PO ONE (22:48)
[2024-12-21] MEDS ORDERED: HYDR-3421 PO (23:36)
[2024-12-21 23:54] VITALS: BP 136/71; PULSE 68; RESP 18; TEMP 98.1; O2SAT 97
--- NOTE | 2024-12-22 06:53 | EKG ---
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
== END 2024-12-21 23:58 | disposition home or self-care (01) ==
LOC: EDH 20:20
DX: F41.1 Generalized anxiety disorder (principal); R07.89 Other chest pain; E11.9 Type 2 diabetes mellitus without complications; E78.00 Pure hypercholesterolemia, unspecified; I10 Essential (primary) hypertension; J45.909 Unspecified asthma, uncomplicated; M79.7 Fibromyalgia; Z90.49 Acquired absence of other specified parts of digestive tract; Z90.710 Acquired absence of both cervix and uterus; Z20.822 Contact with and (suspected) exposure to COVID-19
CPT/HCPCS: 36415; 70450; 71045; 80048; 81003; 82550; 83880; 84484; 85025; 87635; 87804; 87880; 93005; 99285